=== PATIENT | male | born 1970 | race Caucasian/White ===

== ENCOUNTER 2022-09-10 09:24 | Outpatient (CLI) | payer BC ==
[2022-09-10] MEDS ORDERED: CYSTOGRAFIN 300 ML INFUS..BTL UR ONE (10:08)
== END 2022-09-10 19:50 | disposition home or self-care (01) ==
LOC: SNM 09:24 → SRD 19:50
PROVIDERS: ATTEND Urology
DX: C61 Malignant neoplasm of prostate (principal)
CPT/HCPCS: 74430; 51600; Q9958